=== PATIENT | male | born 1955 | race Caucasian/White ===

== ENCOUNTER 2017-08-21 11:59 | Emergency (ER) | payer MEDICARE, MEDICAID ==
[~2017-08-21] VITALS: Ht 182.9 cm; Wt 100.9 kg
[~2017-08-21 11:59] MED LIST: ALBU18HF INH; FURO-93 PO; GABA300C PO; HYDR4TAB48 PO; LEVO75TA5 PO; METH500T97 PO; METH750T87 PO; MUSCLE RELAXANT; NERVE PILL; NORT25CA PO; OXYC10TA6 PO; POTA20TA91 PO; SPIR25TA PO; TIOT18CA INH; UNK DIURETIC PO; Will bring list DOS; [UNRECOGNIZED DRUG - REMARK] PO
[2017-08-21 12:24] VITALS: BP 134/88
== END 2017-08-21 13:29 | disposition home or self-care (01) ==
LOC: ED 13:25
DX: S60.222A Contusion of left hand, initial encounter (principal); S63.502A Unspecified sprain of left wrist, initial encounter; L03.114 Cellulitis of left upper limb; F17.200 Nicotine dependence, unspecified, uncomplicated; W01.0XXA Fall on same level from slipping, tripping and stumbling without subsequent striking against object, initial encounter; Y93.89 Activity, other specified; Y92.89 Other specified places as the place of occurrence of the external cause; Y99.8 Other external cause status
CPT/HCPCS: 99284